=== PATIENT | female | born 1950 | race Caucasian/White ===

== ENCOUNTER → 2017-03-16 | Outpatient (CLI) | payer MEDICARE, OTHER | END | disposition home or self-care (01) | LOC: CFH 11:38 | PROVIDERS: ATTEND Family Medicine | DX: Z13.820 Encounter for screening for osteoporosis (principal); M19.012 Primary osteoarthritis, left shoulder; M81.0 Age-related osteoporosis without current pathological fracture | CPT/HCPCS: 77080 ==

== ENCOUNTER → 2019-12-11 | Outpatient (CLI) | payer MEDICARE, OTHER ==
[~2019-12-11] MED LIST: HYDROCORT PO; LEVO112T2 PO; PRAS1TAB PO; [UNRECOGNIZED DRUG - OTHER] PO; [UNRECOGNIZED DRUG - OTHER] PO; [UNRECOGNIZED DRUG - OTHER] PO
[2019-12-11 12:05] LABS: BASOPHILS # (AUTO) 0.02 x10^3/uL (0-0.1); BASOPHILS % (AUTO) 0 % (0-1); CHLORIDE 105 mmol/L (98-107); EOSINOPHILS # (AUTO) 0.03 x10^3/uL (0-0.4); EOSINOPHILS % (AUTO) 0 % (1-7); LYMPHOCYTES # (AUTO) 1.16 x10^3/uL (1-3.4); LYMPHOCYTES % (AUTO) 12 % (22-44); MD NO; MEAN CORPUSCULAR HGB CONC 33.6 g/dL (32.4-35.8); MEAN CORPUSCULAR VOLUME 98.1 fL (80-100); MEAN PLATELET VOLUME 7.1 fL (7.4-10.4); MONOCYTES # (AUTO) 0.46 x10^3/uL (0.2-0.8); MONOCYTES % (AUTO) 5 % (2-9); NEUTROPHILS # (AUTO) 8.06 x10^3/uL (1.8-6.8); NEUTROPHILS % (AUTO) 83 % (42-75); PLATELET COUNT 236 x10^3/uL (130-400); RED BLOOD COUNT 4.45 x10^6/uL (3.82-5.3); RED CELL DISTRIBUTION WIDTH 13.2 % (9.6-15.2)
[2019-12-11 12:16] LABS: ANION GAP 9 mmol/L (5-15); CALCIUM 9.4 mg/dL (8.5-10.1); CREATININE 0.98 mg/dL (0.55-1.02)
== END | disposition home or self-care (01) ==
LOC: STAR 10:50
PROVIDERS: ATTEND Orthopaedic Surgery
DX: Z01.818 Encounter for other preprocedural examination (principal); M17.11 Unilateral primary osteoarthritis, right knee; M25.561 Pain in right knee
CPT/HCPCS: 36415; 80048; 85025; 87081; 93005

== ENCOUNTER 2019-12-22 12:01 | Observation (INO) | payer MEDICARE, OTHER ==
[~2019-12-22] VITALS: Ht 163.8 cm; Wt 65.6 kg
[~2019-12-22 12:01] MED LIST changes: +FENTANYL PF 250 MCG/5ML ONE; +ROPIvacaine/PF 0.2%, 20 ML ONE
[2019-12-22] MEDS ORDERED: LACTATED RINGERS 1,000 ML IV SCH (12:12)
[2019-12-22] MEDS ORDERED: KETOROLAC 60 MG/2 ML ONE (12:15)
[2019-12-22] MEDS ORDERED: ROPIvacaine/PF 0.2%, 20 ML ONE (12:15)
[2019-12-22] MEDS ORDERED: EPINEPHRINE 1 MG/ML, 1ML ONE (12:15)
[2019-12-22] MEDS ORDERED: TRANEXAMIC ACID 100 MG/ML, 10ML ONE (12:15)
[2019-12-22 12:24] VITALS: BP 118/75
[2019-12-22] MEDS ORDERED: GABAPENTIN 300 MG CAPSULE PO STA (12:26)
[2019-12-22] MEDS ORDERED: ACETAMINOPHEN 500 MG TABLET PO STA (12:26)
[2019-12-22] MEDS ORDERED: HYDROCORTISONE 100 MG INJ. ONE (13:15)
[2019-12-22] MEDS ORDERED: CEFAZOLIN 1,000 MG ONE (13:28)
[2019-12-22] MEDS ORDERED: MORPHINE SULFATE 4 MG/ML, 1ML IVPush PRN (13:30)
[2019-12-22] MEDS ORDERED: hydrALAzine 20 MG/ML, 1ML IV PRN (13:30)
[2019-12-22] MEDS ORDERED: OXYcodone 5 MG/5 ML ORAL.SOL UDC PO PRN (13:30)
[2019-12-22] MEDS ORDERED: HYDROmorphone 2 MG/ML, 1ML IVPush PRN (13:30)
[2019-12-22] MEDS ORDERED: MEPERIDINE/PF 25MG/ML,1ML IVPush PRN (13:30)
[2019-12-22] MEDS ORDERED: FENTANYL PF 100 MCG/2ML IV PRN (13:30)
[2019-12-22] MEDS ORDERED: LABETALOL 5MG/ML, 20ML IV PRN (13:30)
[2019-12-22] MEDS ORDERED: PROMETHAZINE 25 MG/ML, 1ML IV PRN (13:30)
[2019-12-22] MEDS ORDERED: HALOPERIDOL 5 MG/ML IV PRN (13:30)
[2019-12-22] MEDS: D5%-0.45% NACL 1,000 ML IV SCH (14:56)
[2019-12-22] MEDS ORDERED: ONDANSETRON 4 MG TABLET PO PRN (15:00)
[2019-12-22] MEDS ORDERED: POLYETHYLENE GLYCOL 17 GM PACKET PO PRN (15:00)
[2019-12-22] MEDS ORDERED: DIPHENHYDRAMINE 25 MG CAPSULE PO PRN (15:00)
[2019-12-22] MEDS ORDERED: HYDROcodone/APAP 10/325 MG TABLET PO PRN (15:00)
[2019-12-22] MEDS ORDERED: BISACODYL 10 MG SUPP PR PRN (15:00)
[2019-12-22] MEDS ORDERED: PROMETHAZINE 12.5 MG SUPP PR PRN (15:00)
[2019-12-22] MEDS ORDERED: DIAZEPAM 5 MG TABLET PO PRN (15:00)
[2019-12-22] MEDS ORDERED: MAGNESIUM HYDROXIDE 8%, 30ML UDC PO PRN (15:00)
[2019-12-22] MEDS ORDERED: HYDROmorphone 1 MG/ML, 1ML INJ IVPush PRN (15:00)
[2019-12-22] MEDS ORDERED: ONDANSETRON 2MG/ML, 2ML IV PRN (15:00)
[2019-12-22] MEDS ORDERED: ALUMINUM/MAG/SIMETHICONE 30 ML UDC PO PRN (15:00)
[2019-12-22] MEDS ORDERED: ZOLPIDEM 5MG TABLET PO PRN (15:00)
[2019-12-22] MEDS ORDERED: PSYLLIUM PACKET PO PRN (15:00)
[2019-12-22] MEDS ORDERED: SENNA/DOCUSATE TABLET PO PRN (15:00)
[2019-12-22] MEDS ORDERED: TRANEXAMIC ACID 1,000 MG in SODIUM CHLORIDE 0.9% 100 ML IVPB ONE (15:30)
[2019-12-22] MEDS: FERROUS SULFATE 325 MG TABLET PO SCH (18:18)
[2019-12-22] MEDS: ACETAMINOPHEN 325 MG TABLET PO SCH (18:18)
[2019-12-22] MEDS: KETOROLAC 30 MG/1 ML IV SCH (18:18)
[2019-12-22] MEDS: CALCIUM/VITAMIN D3 250-125 TABLET PO SCH (18:18)
[2019-12-22] MEDS: DOCUSATE 100 MG CAPSULE PO SCH (20:17)
[2019-12-22 20:46] VITALS: BP 112/73
[2019-12-22] MEDS: ASPIRIN 81 MG TABLET EC PO SCH (21:53)
[2019-12-22] MEDS: CEFAZOLIN PMX 2GM/50ML 50 ML IVPB SCH (21:53)
[2019-12-22 23:41] VITALS: BP 104/60
[2019-12-23] MEDS: ACETAMINOPHEN 325 MG TABLET PO SCH ×2 (00:48→06:13)
[2019-12-23] MEDS: KETOROLAC 30 MG/1 ML IV SCH ×2 (02:24→10:04)
[2019-12-23 03:36] VITALS: BP 125/68
[2019-12-23] MEDS: D5%-0.45% NACL 1,000 ML IV SCH (04:16)
[2019-12-23] MEDS ORDERED: LEVOTHYROXINE 112 MCG TABLET PO SCH (06:00)
[2019-12-23] MEDS ORDERED: DEXAMETHASONE 4 MG/ML, 1ML IVPush ONE (06:00)
[2019-12-23] MEDS: CEFAZOLIN PMX 2GM/50ML 50 ML IVPB SCH (06:12)
[2019-12-23 06:40] VITALS: BP 113/78
[2019-12-23] MEDS: DOCUSATE 100 MG CAPSULE PO SCH (08:30)
[2019-12-23] MEDS: CALCIUM/VITAMIN D3 250-125 TABLET PO SCH (08:30)
[2019-12-23] MEDS: ASPIRIN 81 MG TABLET EC PO SCH (08:30)
[2019-12-23] MEDS: FERROUS SULFATE 325 MG TABLET PO SCH (08:30)
[2019-12-23] MEDS ORDERED: MULTIVITAMINS/MINERALS TABLET PO SCH (09:00)
[2019-12-23] MEDS ORDERED: ASCORBIC ACID 500 MG TABLET PO SCH (09:00)
== END 2019-12-23 11:15 | disposition home or self-care (01) ==
LOC: OUT 12:01 → ORIP 14:56 → 4NE 16:03 → DCLOUNGE 12-23 11:05
PROVIDERS: ADMIT Orthopaedic Surgery; ATTEND Orthopaedic Surgery
DX: M17.11 Unilateral primary osteoarthritis, right knee (principal); E03.9 Hypothyroidism, unspecified; G30.0 Alzheimer's disease with early onset; F02.80 Dementia in other diseases classified elsewhere, unspecified severity, without behavioral disturbance, psychotic disturbance, mood disturbance, and anxiety; Z88.0 Allergy status to penicillin; Z79.899 Other long term (current) drug therapy
CPT/HCPCS: 27447; 36415; 73560; 85014; 85018; 96365; 96366; 96375; 96376; 97110; 97161; 97165; C1713; C1776; G0378; J0171; J0690; J1100; J1720; J1885; J2795; J3010; J7120